=== PATIENT | male | born 1950 | race American Indian/Alaskan Native ===

== ENCOUNTER 2019-06-30 17:51 | Emergency (ER) | payer MEDICARE ==
--- NOTE | 2019-06-30 19:27 | Emergency Department Report ---
ED Syncope HPI - General Chief Complaint: Syncope Stated Complaint: SYNCOPE Time Seen by Provider: 06/30/19 18:57 - History of Present Illness Initial Comments: 68-year-old -[place] male resident of an [facility] with a past medical history of hypertension, diabetes, cauda equina syndrome, history of metabolic encephalopathy, spinal stenosis, history of a CVA presents to the emergency department via EMS reports that that the senior living had reported he had an episode of syncope. The reason was unknown. Mr. Nix reports that he was lying in bed resting when he was advised that he had a syncopal episode may have lasted for about an hour. States at this time he is asymptomatic and feels normal. Denies any chest pain, headache, dizziness, blurry vision, fever, chills, sweats, nausea, vomiting, hemoptysis, hematemesis, hematochezia. Reports he has no known contact with any coronavirus, and states that he feels normal pain-free Timing/Prior Episodes: single episode today Precipitating Factors: Positive: none Loss of Consciousness: unsure (Patient cannot recall the duration states may have been brief may have been for an hour) Current Symptoms: back to normal. denies: blurred vision, chest pain, diaphoresis, dizziness, headache, lightheadedness, loss of bladder control, loss of bowel control, motionless, shallow/rapid breathing, weak/absent pulse, weakness - Related Data Allergies/Adverse Reactions: Allergies No Known Allergies Allergy (Verified 06/30/19 18:47) ED Review of Systems ROS: Stated complaint: SYNCOPE Other details as noted in HPI Comment: All other systems reviewed and negative ED Past Medical Hx - Past Medical History Previous Medical History?: Yes Hx Diabetes: Yes Additional medical history: Patient believed he had history of stroke - Surgical History Past Surgical History?: Yes Additional Surgical History: Colonostomy - Social History Smoking Status: Never Smoker Substance Use Type: None ED Physical Exam - General Limitations: No Limitations, Altered Mental Status General appearance: alert, in no apparent distress - Head Head exam: Present: atraumatic, normocephalic, normal inspection - Eye Eye exam: Present: normal appearance, PERRL, EOMI. Absent: scleral icterus, conjunctival injection Pupils: Present: normal accommodation. Absent: unequal, miosis - ENT ENT exam: Present: mucous membranes moist - Neck Neck exam: Present: normal inspection, full ROM. Absent: tenderness - Respiratory Respiratory exam: Present: normal lung sounds bilaterally. Absent: respiratory distress, wheezes, rales, rhonchi, stridor, accessory muscle use, decreased breath sounds - Cardiovascular Cardiovascular Exam: Present: regular rate, normal rhythm. Absent: bradycardia, tachycardia, systolic murmur, diastolic murmur, rubs, gallop - GI/Abdominal GI/Abdominal exam: Present: soft, normal bowel sounds, other (Healed surgical scar with a colostomy bag to the left of the abdomen in place.). Absent: tenderness, guarding, rebound, rigid, hyperactive bowel sounds, hypoactive bowel sounds, organomegaly, mass, bruit - Rectal Rectal exam: Present: deferred - Extremities Exam Extremities exam: Present: normal inspection, normal capillary refill. Absent: full ROM, pedal edema - Back Exam Back exam: Present: normal inspection. Absent: CVA tenderness (R), CVA tenderness (L) - Neurological Exam Neurological exam: Present: alert, oriented X3, CN II-XII intact, normal gait. Absent: abnormal gait, motor sensory deficit - Expanded Neurological Exam Expanded Neurological exam: Absent: innattentive, memory loss-remote event, memory loss- recent event, ataxia, receptive aphasia, expressive aphasia, total aphasia, tremor, protecting the airway Patient oriented to: Present: person, place, time Speech: Present: fluid speech Cranial nerves: EOM's Intact: Normal, Gag Reflex: Normal, Tongue Deviation: Normal, Nystagmus: Normal, Facial Sensation: Normal, Facial Palsy with Forehead Movement: Normal, Facial Palsy without Forehead Movement: Normal Cerebellar function: Finger to Nose: Normal, Heel to Can: Normal Upper motor neuron: Dre Neglect: Normal, Pronator Drift: Normal, Babinski Sign: Normal, Sensory Extinction: Normal Motor strength exam: RUE: 5, LUE: 5, RLE: 5, LLE: 5 Best Eye Response ([place]): (4) open spontaneously Best Motor Response ([place]): (6) obeys commands Best Verbal Response ([place]): (5) oriented [place] Total: 15 - Psychiatric Psychiatric exam: Present: normal affect, normal mood, suicidal ideation. Absent: depressed, anxious, flat affect, manic - Skin Skin exam: Present: warm, dry, intact, normal color. Absent: rash, cyanosis, erythema, urticaria, petechiae, pallor, abrasion ED Course Vital Signs 06/30/19 06/30/19 06/30/19 18:13 18:57 21:09 Temperature 98.5 F Pulse Rate 62 69 Pulse Rate [ 65 Lying] Respiratory 16 Rate Blood Pressure 135/70 Blood Pressure 116/64 [Left] Blood Pressure 120/64 [Lying] O2 Sat by Pulse 95 Oximetry 06/30/19 06/30/19 06/30/19 21:36 22:00 23:00 Temperature Pulse Rate 81 64 67 Pulse Rate [ Lying] Respiratory 21 16 14 Rate Blood Pressure 126/84 135/67 127/68 Blood Pressure [Left] Blood Pressure [Lying] O2 Sat by Pulse 97 96 96 Oximetry ED Medical Decision Making - Lab Data Result diagrams: 06/30/19 19:28 06/30/19 19:28 - Radiology Data Radiology results: report reviewed [facility] [address] [place] [address] XRay Report Signed Patient: IZABELA NIX MR#: [id number] : 1950 Acct:[id number] Age/Sex: 68 / M ADM Date: 06/30/19 Loc: ED Attending Dr: Ordering Physician: SANTO RIOS Date of Service: 06/30/19 Procedure(s): XR chest 1V ap Accession Number(s): [id number] cc: SANTO RIOS Fluoro Time In Minutes: CHEST 1 VIEW INDICATION / CLINICAL INFORMATION: Syncope. COMPARISON: None available. FINDINGS: SUPPORT DEVICES: None. HEART / MEDIASTINUM: No significant abnormality. LUNGS / PLEURA: No significant pulmonary or pleural abnormality. No pneumothorax. IMPRESSION: No acute finding. Signer Name: Abimael Linda MD Signed: 06/30/2019 7:55 PM Workstation Name: [id number] Transcribed By: DMB Dictated By: Abimael Linda MD Electronically Authenticated By: Abimael Linda MD Signed Date/Time: 06/30/191954 DD/ 53 TD/TT: - Medical Decision Making This 68-year-old -[place] male patient presents with symptoms consistent with syncope, of an unknown etiology. Differential diagnosis includes vasovagal, resting, medication reaction, reflux cyst syncope. Low suspicion for orthostatic syncope given lack of dehydration, no evidence of acute life- threatening hemorrhage. Presentation not consistent with seizures given short course, no postictal state, no seizure activity. Low suspicion for acute neurologic catastrophe is to include intracranial cranial hemorrhage given lack of trauma, risk factors for bleeding diathesis. Low suspicion for vascular catastrophe to include PE, thoracic aortic dissection, AAA rupture. The presentation consistent not consistent with acute life-threatening arrhythmia, structural heart disease, electrical conduction abnormalities or ACS. He has been at baseline since arriving to the emergency department his laboratory data was all normal as well as a CT scan patient is ambulatory per his baseline at the rehab facility where he is currently to improve his strength. Case was discussed with attending Dr. Hair recommended plan is to return to the rehab facility Critical care attestation.: If time is entered above; I have spent that time in minutes in the direct care of this critically ill patient, excluding procedure time. ED Disposition Clinical Impression: Syncope Disposition: DC-01 TO HOME OR SELFCARE Is pt being admited?: No Does the pt Need Aspirin: No Condition: Stable Instructions: Syncope (ED) Referrals: PRIMARY CARE, [Primary Care Provider] - 3-5 Days
[2019-06-30 19:51] LABS: Basophils % (Auto) 0.6 % (0.0-1.8); Eosinophils # (Auto) 0.1 K/mm3 (0.0-0.4); Eosinophils % (Auto) 1.2 % (0.0-4.3); Hematocrit 31.9 % (35.5-45.6); Hemoglobin 10.4 gm/dl (11.8-15.2); Lymphocytes # (Auto) 1.2 K/mm3 (1.2-5.4); Mean Corpuscular HGB Conc 33 % (32-34); Mean Corpuscular Volume 90 fl (84-94); Monocytes # (Auto) 0.8 K/mm3 (0.0-0.8); Monocytes % (Auto) 8.7 % (0.0-7.3); Platelet Count 233 K/mm3 (140-440); Red Blood Count 3.55 M/mm3 (3.65-5.03); Red Cell Distribution Width 17.4 % (13.2-15.2)
[2019-06-30 19:54] LABS: Bilirubin,Urine NEG (Negative); Blood,Urine NEG (Negative); Color,Urine Yellow (Yellow); Hyaline Casts,Urine 1 /LPF; Mucus,Urine FEW /HPF; Protein,Urine <15 mg/dL mg/dL (Negative); Urobilinogen,Urine < 2.0 mg/dL (<2.0)
--- NOTE | 2019-06-30 19:59 | XRay Report ---
CHEST 1 VIEW INDICATION / CLINICAL INFORMATION: Syncope. COMPARISON: None available. FINDINGS: SUPPORT DEVICES: None. HEART / MEDIASTINUM: No significant abnormality. LUNGS / PLEURA: No significant pulmonary or pleural abnormality. No pneumothorax. IMPRESSION: No acute finding. Signer Name: Abimael Linda MD Signed: 06/30/2019 7:55 PM Workstation Name: [id number]
[2019-06-30 20:07] LABS: Alanine Aminotransferase 39 units/L (7-56); Albumin 3.7 g/dL (3.9-5); BUN/Creatinine Ratio 14; Blood Urea Nitrogen 20 mg/dL (9-20); Calcium 9.4 mg/dL (8.4-10.2); Hemolysis Index 22
[2019-06-30 23:18] VITALS: BP 127/68
== END 2019-07-01 00:20 | disposition home or self-care (01) ==
LOC: ED 17:51
DX: R55 Syncope and collapse (principal); I10 Essential (primary) hypertension; E11.9 Type 2 diabetes mellitus without complications; Z98.890 Other specified postprocedural states; Z86.73 Personal history of transient ischemic attack (TIA), and cerebral infarction without residual deficits
CPT/HCPCS: 36415; 71045; 80053; 81001; 84484; 85025; 93005; 93010